=== PATIENT | male | born 1990 ===

== ENCOUNTER 2022-02-02 12:40 | Outpatient (REF) | payer OTHER, MEDICAID, SELFPAY ==
--- NOTE | ~2022-02-02 | XR_ITS ---
EXAMINATION: XR HIP, LEFT CLINICAL INFORMATION: Pain COMPARISON: None TECHNIQUE: Two views of the left hip and one view of the pelvis. FINDINGS: Bones and soft tissues are normal. No fracture. Alignment is anatomic. Hip joint spaces are normal. XR/XR hip LT w PEL1V IMPRESSION: Normal left hip and pelvis.
== END 2022-02-02 12:41 | disposition home or self-care (01) ==
LOC: HO.HOSX 12:40
PROVIDERS: Visit Provider Physician Assistant
DX: M25.552 Pain in left hip (principal); M54.50 Low back pain, unspecified
CPT/HCPCS: 73502

== ENCOUNTER 2022-02-18 18:42 | Outpatient (REF) | payer OTHER, MEDICAID, SELFPAY ==
--- NOTE | ~2022-02-18 | MR_ITS ---
EXAMINATION: MR LUMBAR SPINE WITHOUT CONTRAST CLINICAL INFORMATION: Low back pain. COMPARISON: [employer] comparison TECHNIQUE: MRI of the lumbar spine was obtained using routine sequences without contrast. FINDINGS: VERTEBRAL BODIES AND PARASPINAL STRUCTURES: There is multilevel narrowing of disc height is most prominent at L5-S1. There is a mild retrolisthesis at this level. There is also narrowing of intervertebral disc height with loss of signal in the lower thoracic spine and at L1-L2. There are mild degenerative endplate contour changes. There is a Schmorl's node in the superior endplate of L1. Vertebral body heights are maintained and no fractures demonstrated. Overall, marrow signal is homogenous. There is likely a small cyst at the upper pole of the left kidney. The visualized pelvic structures are unremarkable. CONUS MEDULLARIS AND CAUDA EQUINA: Normal, terminating at the level of L1. Accounting for artifact, spinal cord signal appears normal. SPINAL LEVELS: T12-L1: The facet joints appear normal. There is a small left-sided disc protrusion with minimal distortion of the ventral thecal sac. There is no central stenosis and the neural foramina patent bilaterally. L1-L2: The facet joints appear normal. There is a small right-sided disc protrusion with minimal distortion of the ventral thecal sac. There is no central stenosis and the neural foramina patent bilaterally. L2-L3: The facet joints appear normal bilaterally. Disc contour is normal. There is no central stenosis or foraminal narrowing. L3-L4: The facet joints appear normal. There is a mild diffuse disc bulge but there is no central stenosis and the neural foramina are patent bilaterally. L4-L5: The facet joints appear normal. There is a mild diffuse disc bulge but there is no central stenosis and the neural foramina are patent bilaterally. L5-S1: There is mild bilateral facet arthropathy. There is a small disc protrusion posteriorly in the midline with no mass effect on the thecal sac. There is no central stenosis. There is no foraminal nerve root impingement. MR/MR lumbar spine wo con IMPRESSION: 1. There is multilevel spondylosis and there is mild facet arthropathy as described above. There is no central stenosis and the neural foramina are patent. 2. There are no acute fractures or subluxations.
== END 2022-02-18 18:43 | disposition home or self-care (01) ==
LOC: HO.MRI 18:42
PROVIDERS: Visit Provider Physician Assistant
DX: M54.50 Low back pain, unspecified (principal); R20.0 Anesthesia of skin
CPT/HCPCS: 72148

== ENCOUNTER 2024-06-03 13:08 | Emergency (ER) | payer MEDICAID, SELFPAY ==
--- NOTE | ~2024-06-03 | CT_ITS ---
EXAMINATION: CT HEAD WITHOUT CONTRAST CLINICAL INFORMATION: Headaches COMPARISON: None available. TECHNIQUE: Contiguous axial imaging was performed from the skull base to vertex without intravenous administration of contrast. This CT examination was performed using dose optimization techniques as appropriate, variously including the following: *Automated exposure control *Adjustment of mA and/or kV according to patient size (this includes techniques or standardized protocols for targeted exams where dose is matched to indication/reason for exam; i.e. extremities or head) *Use of iterative reconstruction technique DLP: 654 mGy-cm FINDINGS: There is no mass hemorrhage or cerebral edema. Ventricles and sulci commensurate. Herr-white differentiation normal. No extra-axial fluid collection. Soft tissues and osseous structures normal. Chronic mucosal thickening in the maxillary sinuses CT/CT head/brain wo IV con IMPRESSION: No acute intracranial pathology. Electronically signed by: Thomas Morales MD 06/03/2024 03:04 PM [facility]
[2024-06-03 13:22] VITALS: BP 152/84; PULSE 73; RESP 18; TEMP 37; O2SAT 99; BMI 29.8
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
[2024-06-03 14:05] LABS: MANUAL DIFF FLAG NO
[2024-06-03 14:07] LABS: Basophils Absolute Auto 0.1 X10*3/uL (0.0-0.2); Basophils Percent Auto 0.8 % (0-2); Eosinophils Percent Auto 0.2 % (0-4); Hematocrit 46.9 % (42.0-52.0); Hemoglobin 16.7 g/dl (14.0-18.0); Imm Gran Abs Auto 0.02 X10*3/uL (0.00-0.03); Imm Gran Pct Auto 0.2 % (0.0-0.4); Lymphocytes Absolute Auto 2.4 X10*3/uL (1.2-4.9); Lymphocytes Percent Auto 22.1 % (20-40); Mean Corpuscular HGB Conc 35.6 g/dl (31.0-36.0); Mean Corpuscular Volume 87.2 fL (80.0-98.0); Mean Platelet Volume 9.3 fL (9.4-12.4); Monocytes Absolute Auto 0.7 X10*3/uL (0.1-1.2); Monocytes Percent Auto 6.9 % (2-11); Neutrophils Absolute Auto 7.4 x10*3/uL (2.0-8.3); Neutrophils Percent Auto 69.8 % (45-73); Platelet Count 281 X10*3/uL (160-400); Red Blood Count 5.38 X10*6/uL (4.60-5.80); Red Cell Distribution Width 13.7 % (11.0-16.0); White Blood Count 10.7 X10*3/uL (4.8-10.8)
[2024-06-03 14:23] LABS: Alanine Aminotransferase 39 U/L (0-40); Albumin Level 4.8 g/dL (3.5-5.0); Alkaline Phosphatase 74 U/L (39-117); Anion Gap 11 (12-20); Aspartate Amino Transferase 24 U/L (5-37); Bilirubin Direct 0.2 mg/dL (0.0-0.5); Bilirubin Total 0.4 mg/dL (0.0-1.0); Blood Urea Nitrogen 12 mg/dL (9-16); Calcium 9.4 mg/dL (8.4-10.2); Carbon Dioxide 26 mmol/L (22-29); Chloride 109 mmol/L (96-108); Creatinine Clr Calc Pharmacy 118.2; Estimated Glomerular Filt Rate > 60; Glucose Random 95 mg/dL (60-115); Magnesium 2.1 mg/dL (1.6-2.6); Sodium 142 mmol/L (135-145); Total Protein 7.7 g/dL (6.5-8.0)
[2024-06-03 15:23] VITALS: BP 140/76; PULSE 67; RESP 16; TEMP 37.2; O2SAT 99
[2024-06-03 16:47] VITALS: BP 140/76; PULSE 67; RESP 16; TEMP 37.2; O2SAT 99
== END 2024-06-03 16:48 | disposition home or self-care (01) ==
PROVIDERS: Physician Assistant Medical; Emergency Provider Emergency Medicine
DX: Z04.1 Encounter for examination and observation following transport accident (principal); R51.9 Headache, unspecified
CPT/HCPCS: 36415; 70450; 80048; 80076; 83735; 85025; 99283; 99284